=== PATIENT | female | born 1965 | race Caucasian/White ===

== ENCOUNTER 2019-05-26 08:11 | Day surgery (SDC) | payer BC ==
[2019-05-26] MEDS ORDERED: SOD CHLORIDE 0.9% 1,000 ML IV (10:00)
[2019-05-26] MEDS ORDERED: ONDANSETRON 4 MG INJ (10:45)
[2019-05-26] MEDS ORDERED: MEPERIDINE 100 MG INJ (10:45)
[2019-05-26] MEDS ORDERED: CEFAZOLIN 1 GM INJ (10:45)
[2019-05-26] MEDS ORDERED: PROPOFOL 20 ML (10:45)
[2019-05-26] MEDS ORDERED: METOCLOPRAMIDE 10 MG INJ (10:45)
[2019-05-26] MEDS ORDERED: LIDOCAINE 2% (SDV) 5 ML INJ (10:45)
[2019-05-26] MEDS ORDERED: ONDANSETRON 4 MG INJ IV ×2 (11:00→12:00)
[2019-05-26] MEDS ORDERED: morphine 2 MG INJ IV (11:00)
[2019-05-26] MEDS ORDERED: ACETAMINOPHEN 325 MG TAB PO (11:00)
[2019-05-26] MEDS ORDERED: HYDROCODONE/APAP (5/325) TAB PO (11:00)
[2019-05-26] MEDS ORDERED: DIPHENHYDRAMINE 50 MG INJ IV (12:00)
[2019-05-26] MEDS ORDERED: OXYCODONE/ACETAMINOPHEN (5/325) TAB PO ×2 (12:00)
[2019-05-26] MEDS ORDERED: METOCLOPRAMIDE 10 MG INJ IV (12:00)
[2019-05-26] MEDS ORDERED: MIDAZOLAM 1 MG/ML 2 ML INJ IV (12:00)
[2019-05-26] MEDS ORDERED: FENTAnyl 50 MCG/ML VIAL IV ×3 (12:00)
[2019-05-26] MEDS ORDERED: MEPERIDINE 25 MG INJ IV (12:00)
[2019-05-26] MEDS ORDERED: HYDROmorphONE 1 MG/5 ML IV SYRINGE IV (12:00)
[2019-05-26] MEDS ORDERED: BACITRACIN/POLYMYXIN 28.35 GM OINT TOP (12:21)
[2019-05-26] MEDS: BUPIVACAINE 0.25%/EPI (SDV) 10 ML INJ (12:31)
[2019-05-26] MEDS ORDERED: SUCCINYLCHOLINE CHLORIDE 100 MG/5 ML SYG IV (12:32)
[2019-05-26] MEDS ORDERED: ROCURONIUM 50 MG INJ (12:32)
[2019-05-26] MEDS: HYDROmorphONE 1 MG/5 ML IV SYRINGE IV ×2 (13:02→13:13)
[2019-05-26] MEDS ORDERED: ATROPINE 1 MG/10 ML SYRINGE (14:31)
[2019-05-26] MEDS ORDERED: EPHEDrine 25 MG/5 ML SYG (14:31)
[2019-05-26] MEDS ORDERED: GLYCOPYRROLATE 0.4 MG INJ (14:32)
[2019-05-26] MEDS ORDERED: NEOSTIGMINE 3 MG/3 ML SYRINGE (14:32)
== END 2019-05-26 14:37 | disposition home or self-care (01) ==
LOC: SDS 08:11
DX: C44.311 Basal cell carcinoma of skin of nose (principal); L57.8 Other skin changes due to chronic exposure to nonionizing radiation
CPT/HCPCS: 11443; 84703; 88307; 88331; 88332